=== PATIENT | male | born 1960 | race Caucasian/White ===

== ENCOUNTER 2020-11-13 12:34 | Outpatient (CLI) | payer OTHER ==
--- NOTE | 2020-11-13 13:05 | RAD ---
Exam:3 views left hand HISTORY: Possible foreign body in the fourth metacarpophalangeal joint COMPARISON: None FINDINGS: No fracture, cortical irregularity or periosteal reaction. Joint spaces are preserved. No r adiopaque foreign body. IMPRESSION: No radiopaque foreign body
== END 2020-11-13 12:35 | disposition home or self-care (01) ==
LOC: MADRAD 12:34
PROVIDERS: ATTEND Family Medicine
DX: W55.01XA Bitten by cat, initial encounter (principal)

== ENCOUNTER 2020-12-09 13:41 | Emergency (ER) | payer SELFPAY ==
[2020-12-09] MEDS ORDERED: Cefepime 2 GM VIAL ONE (14:30)
[2020-12-09] MEDS ORDERED: Boostrix 0.5 ML (Tdap) VIAL ONE (14:30)
[2020-12-09] MEDS ORDERED: Sodium Chloride 0.9% 1,000 ML ONE (14:30)
[2020-12-09] MEDS ORDERED: Sodium Chloride 0.9% 100 ML ONE (14:30)
[2020-12-09] MEDS ORDERED: Ketorolac Tromethamine 30 MG/ML VIAL ONE (14:30)
[2020-12-09 14:55] LABS: ALT (SGPT) 43 U/L (8-55); AST (SGOT) 60 U/L (5-34); Alkaline Phosphatase 134 U/L (40-110); Anion Gap 15 mmol/L (10-20); BUN (Urea Nitrogen) 4 mg/dL (8.4-25.7); Bilirubin, Total 1.9 mg/dL (0.2-1.2); Calc. Creatinine Clearance 0 mL/min (70-130); Calcium 8.7 mg/dL (7.8-10.44); Carbon Dioxide 24 mmol/L (23-31); Chloride 99 mmol/L (98-107); Globulin 2.9 g/dL (2.4-3.5); Glucose 250 mg/dL (80-115); Potassium 3.1 mmol/L (3.5-5.1); Protein, Total 6.9 g/dL (5.8-8.1); Sodium 135 mmol/L (136-145)
[2020-12-09 15:01] LABS: #Basophils 0.1 thou/uL (0.0-0.2); #Eosinphils 0.1 thou/uL (0.0-0.7); #Lymphocytes 1.8 thou/uL (1.20-3.40); #Monocytes 0.6 thou/uL (0.11-0.59); #Neutrophils 5.4 thou/uL (1.40-6.50); %Basophils 1.3 % (0.0-1.0); %Eosinophils 0.9 % (0.0-10.0); %Lymphocytes 22.4 % (21.0-51.0); %Monocytes 7.2 % (0.0-10.0); %Neutrophils 68.2 % (42.0-75.0); Anisocytosis SLIGHT = 6-15 cells (100X) (0-5/hpf); Hemoglobin 16.9 g/dL (14.0-18.0); MDiff Complete? YES; Macrocytosis SLIGHT = 6-15 cells (100X) (0-5/hpf); Mean Corpuscular Hemoglobin 35.2 pg (27.0-31.0); Mean Corpuscular Volume 100.3 fL (78.0-98.0); Mean Platelet Volume 9.8 fL (7.4-10.4); Platelet Count 184 thou/uL (130-400); Platelet Morphology Comment Appears Adequate; RBC Distribution Width 11.6 % (11.5-14.5); Red Blood Cell (RBC) Count 4.82 mill/uL (4.70-6.10); White Blood Cell (WBC) Count 7.9 thou/uL (4.8-10.8)
[2020-12-09] MEDS ORDERED: Sodium Chloride 0.9% 250 ML 500 ML ONE (15:20)
[2020-12-09] MEDS ORDERED: Vancomycin HCl 750 MG VIAL ONE (15:20)
[2020-12-09] MEDS ORDERED: Sodium Chloride 0.9% 30 ML ONE (16:07)
[2020-12-09] MEDS ORDERED: Bacitracin Zinc Ointment 30 gm TUBE ONE (16:07)
[2020-12-09] MEDS ORDERED: Bupivacaine PF 0.5% 30 ML VIAL ONE (16:08)
[2020-12-09 16:31] LABS: SARS-CoV-2 NAA Rapid Test Not Detected (NotDetected)
== END 2020-12-09 16:03 | disposition short-term general hospital (02) ==
LOC: MADERS 13:41
DX: L02.512 Cutaneous abscess of left hand (principal); I10 Essential (primary) hypertension; F17.210 Nicotine dependence, cigarettes, uncomplicated; R73.9 Hyperglycemia, unspecified
CPT/HCPCS: 0240U; 36415; 80053; 83605; 85025; 87040; 87070; 87205; 90471; 90715; 96365; 96367; 96375; J0692; J1885; J3370; J3490; J7050; S0020